=== PATIENT | female | born 1975 | race Caucasian/White ===

== ENCOUNTER → 2020-12-29 | Outpatient (CLI) | payer OTHER ==
[2020-12-29 14:07] LABS: HEMOGLOBIN 13.3 gm/dl (12.3-15.3); RED BLOOD COUNT 4.64 M/UL (4.00-5.10); WHITE BLOOD COUNT 12.1 K/UL (4.5-11.0)
[2020-12-29 14:38] LABS: BUN/CREATININE RATIO 24 (0-10)
[2020-12-30 11:14] LABS: RHEUMATOID ARTHRITIS FACTOR <10.0 IU/mL (0.0-13.9)
[2020-12-31 23:11] LABS: CCP ANTIBODIES IGG/IGA 6 units (0-19)
== END ==
LOC: LAB 12:24
PROVIDERS: Nurse Practitioner Family
DX: D89.9 Disorder involving the immune mechanism, unspecified (principal); M25.50 Pain in unspecified joint; R76.8 Other specified abnormal immunological findings in serum; R53.83 Other fatigue; M54.2 Cervicalgia; M50.30 Other cervical disc degeneration, unspecified cervical region; M25.78 Osteophyte, vertebrae
CPT/HCPCS: 36415; 72040; 80053; 81001; 82550; 82570; 82728; 83520; 84156; 84439; 84443; 85025; 85652; 86140; 86200; 86431